=== PATIENT | female | born 1940 | race Caucasian/White ===

== ENCOUNTER 2024-09-27 12:33 | Observation (INO) ==
[2024-09-27 13:20] LABS: Basophils # (auto) 0.02 K/uL (0.00-0.20); Basophils % (auto) 0.3 %; Eosinophils # (auto) 0.11 K/uL (0.00-0.50); Eosinophils % (auto) 1.5 %; Hematocrit (blood only) 46.6 % (37.0-47.0); Hemoglobin 16.6 g/dl (12.0-16.0); Immature Granulocytes # (auto) 0.01 K/uL (0.01-0.20); Immature Granulocytes % (auto) 0.1 %; Lymphocytes # (auto) 2.29 K/uL (1.20-3.40); Lymphocytes % (auto) 31.5 %; Mean Corpuscular Hemoglobin 31.9 pg (25.0-34.0); Mean Corpuscular Hgb Conc 35.6 g/dL (32.0-36.0); Mean Corpuscular Volume 89.6 fL (80.0-100.0); Mean Platelet Volume 9.9 fL (9.4-12.4); Monocytes # (auto) 0.47 K/uL (0.11-0.59); Monocytes % (auto) 6.5 %; Neutrophils # (auto) 4.38 K/uL (1.40-6.50); Neutrophils % (auto) 60.1 %; Platelet Count 249 K/uL (130-400); RDW Coefficient of Variation 13.7 % (11.5-14.5); RDW Standard Deviation 44.7 fL (36.4-46.3); White Blood Count 7.28 K/ul (4.8-10.8)
--- NOTE | 2024-09-27 13:44 | XRay Report ---
XR chest 1V not portable CLINICAL HISTORY: Chest pain, nonspecific COMPARISON STUDY: Chest radiograph January 13, 2018. FINDINGS: Lung volumes are normal. Several small calcified pulmonary nodules are unchanged and benign . There is no pneumothorax or pleural effusion. Cardiac size is normal. Mediastinal contours are norm al. There is no evidence for pulmonary edema. IMPRESSION: No acute cardiopulmonary findings. ACT 112: Negative or not required by law. Electronically signed by: Chaitanya Earl M.D. 09/27/2024 1:42 PM
--- NOTE | 2024-09-27 15:12 | Electrocardiogram Report ---
Test Reason : Blood Pressure : */* mmHG Vent. Rate : 78 BPM Atrial Rate : 78 BPM P-R Int : 126 ms QRS Dur : 112 ms QT Int : 452 ms P-R-T Axes : 8 -30 -13 degrees QTcB Int : 515 ms Poor data quality, interpretation may be adversely affected Normal sinus rhythm Left axis deviation Incomplete left bundle block Minimal voltage criteria for LVH, may be normal variant Nonspecific ST and T wave abnormality Abnormal ECG When compared with ECG of 13-Jan-2018 15:04, Incomplete left bundle block has replaced Non-specific intra-ventricular conduction block Confirmed by Jeremías Connelly ([id number]) on 09/27/2024 3:11:54 PM Referred By: Confirmed By: Jeremías Connelly
--- NOTE | 2024-09-27 15:57 | Emergency Department Note ---
Impression & Plan Chest pain, Anxiety, Acute dehydration ED Provider Note NAME: HIMA GU AGE: 84 SEX: F : 1940 ARRIVES VIA: Walk-In INFORMANT: Patient, friend ED PROVIDER(S): Cedrick Sapp MD CHIEF COMPLAINT: Chest pain MEDICAL DECISION MAKING: Patient presents due to concern for intermittent chest pains. IV was established and blood work is obtained. I did review an outpatient cardiology note which showed the patient does not have any stress test imaging since August 2021. Patient's blood work today shows a normal white count with mildly elevated hemoglobin at 16.6 and a normal platelet count. The patient did receive IV Ativan 0.25 mg. The patient's kidney function unremarkable but prerenal azotemia likely present. Initial troponin is negative. Patient does feel improved and the patient no longer has any chest pains. Chest x-ray is unremarkable. I did speak with the on-call hospital service Indra Archibald PA-C and Dr. Daniels patient was admitted to medicine service. Discussion w/ other healthcare providers: ARCENIO Archibald PA-C and Dr. Daniels Prior /Outside records reviewed: I reviewed part of a primary care visit from Erwin Lei. Patient had history of CAD hypertension GERD MUELLER gastric bypass hyperlipidemia. Differential diagnosis: Cardiac ischemia, aortic dissection, pulmonary embolism, pneumothorax, pneumonia, pericarditis, myocarditis, GERD, cholecystitis, pancreatitis, musculoskeletal, as well as other pathologies were considered. Diagnostics, as interpreted by me: ECG: Normal sinus rhythm, rate of 78, prolonged QTc, normal axis significant motion artifact noted with likely T wave inversion inferiorly. Q wave anteriorly. No obvious STEMI. No priors for comparison. Repeat EKG interpreted myself Normal sinus rhythm, rate of 78, prolonged QTc, normal axis no ST elevations borderline left bundle branch block. Cardiac monitoring: An order was placed for continuous cardiac monitoring. The monitor shows a rate of 79 with sinus rhythm. Patient was placed on pulse oximetry Medical decision rules: Heart score Imaging studies: I informally interpreted the patient's chest x-ray does not show obvious pneumonia or pneumothorax with formal report to follow. HPI: Patient presents due to concern for chest pains. Patient reportedly has a chest pains over the last several weeks. This morning of the patient was on a 2 mile walk and when she came toward the end of her walk she did develop more severe centralized chest pain. The patient states that she did break out in a sweat. No nausea or vomiting. Patient reportedly visited friends who brought her here she was struggling to breathe and did seem uncomfortable. The patient states that her chest pain has been intermittent in nature sometimes with days in between chest pain episodes although difficult to determine any exacerbating or remitting factors. She does report that her chest pain feels improved where it is virtually resolved at this time. The patient denies any falls or trauma. No cough or fever. Patient denies any leg swelling or calf pain. She does have a prior history of heart disease and does follow with [facility] cardiology. PAST MEDICAL HISTORY: See Below PAST SURGICAL HISTORY: See Below SOCIAL HISTORY: See Below HOME MEDICATIONS: See Below ALLERGIES: See Below VITALS: See Below PHYSICAL EXAMINATION: GENERAL: NAD, non-toxic. Anxious in appearance. EYE EXAM: Normal conjunctiva. PERRL, no anisocoria and EOM's grossly intact w/o pain. OROPHARYNX: Moist mucus membranes, false teeth in place. NECK: Trachea midline, no stridor. Supple, no nuchal rigidity, no adenopathy, non-tender. No signs of meningismus. FROM of the neck with good chin to chest and neck extension. LUNGS: Clear to auscultation. Normal chest wall mechanics. HEART: NSR, no MRG. ABDOMEN: Abdomen soft, non-tender, no masses, no rebound or guarding. BACK: No CVA TTP. SKIN: No rashes and no bruising. UPPER EXTREMITIES: Upper extremities are grossly normal. LOWER EXTREMITIES: Grossly normal, no edema. Negative Homans' sign bilaterally. NEURO EXAM: A&O x3, cranial nerves II-XII grossly intact, normal speech, moves all 4 extremities. Past Med/Surg History Problem List (Updated 09/27/24 @ 19:17 by Cedrick Sapp MD) Acute dehydration (Acute) Anxiety (Acute) Chest pain (Acute) PARKINSON (dyspnea on exertion) Left bundle branch block follows with Dr. Emiliano Lucas Chest pain Myalgia Seasonal allergies Lightheadedness Atypical nevi History of compression fracture of vertebral column (05/05/22) Compression fracture of T3 and T4 vertebra Encounter for pre-operative examination CAD (coronary artery disease) (Chronic) Minimal luminal coronary atherosclerosis per 2007 cath per cardio records HTN (hypertension) (Chronic) GERD (gastroesophageal reflux disease) (Chronic) HLD (hyperlipidemia) (Chronic) MUELLER (nonalcoholic steatohepatitis) (Chronic) Mood disorder (Chronic) Status post total left knee replacement (Acute) Status post fall Vitamin B12 deficiency Restless legs Anemia S/P abdominal surgery, follow-up exam Frequent urination Elevated liver function tests Dysuria Stress incontinence Urge incontinence Recurrent UTI Medical History Anemia H&H WNL on preop labs 03/27/23 Arthritis Bladder leak GERD (gastroesophageal reflux disease) Anxiety Restless leg syndrome Hyperlipidemia Surgical History History of hysterectomy History of total knee replacement left History of esophagogastroduodenoscopy (EGD) History of colonoscopy History of cholecystectomy History of appendectomy H/O abdominal surgery 2021>hernia repair and bowel repair @ [facility] by Dr. Peters H/O gastric bypass 2006 at [facility] History of tooth extraction History of cataract surgery right/left History of cardiac cath 2006>[facility] History of appendectomy Family History Mother Diabetes Brother Coronary heart disease Sister Breast cancer Other No family history of adverse response to anesthesia Social History Smoking Status: Never smoker Age Started Using Tobacco: 32; Age Quit Using Tobacco: 34; Second Hand Exposure: No; Do You Dip or Chew Tobacco: No; Hx Alcohol Use: No Hx Substance Use: No Preferred Language: Pashto Leg Assembler Required: No Beliefs That Will Affect Care: None marital status: / Current Living Situation: Alone current occupational status: retired current occupation: retired- [employer] How many Children do You have: 4 Feels Safe at Home: Yes Childhood Exposure to Second-Hand Smoke: No caffeine: Yes (coffee) Dental Care, Regularly: No Physical Activity Frequency: Daily Seatbelt Use: always Sunscreen Use: Yes Assistive Devices: Denture - Upper and Denture - Lower Allergies Allergies Allergy/AdvReac Type Severity Reaction Status Date / Time No Known Drug Allergies Allergy Verified 06/22/24 09:12 seasonal allergies Allergy Mild Uncoded 06/22/24 09:12 Home Meds Home Medications Medication Instructions Recorded Confirmed docusate sodium 50 mg capsule 50 mg PO BID PRN Constipation 04/10/22 09/27/24 acetaminophen 650 mg 1,300 mg PO Q8H PRN pain 05/24/22 09/27/24 tablet,extended release multivitamin 1 tab PO BID 05/30/22 09/27/24 sennosides 8.6 mg tablet (Natural 8.6 mg PO QAM 05/30/22 09/27/24 Senna Laxative) aspirin 81 mg tablet,delayed 81 mg PO QPM 03/27/23 09/27/24 release (Adult Low Dose Aspirin) magnesium oxide 500 mg capsule 500 mg PO BID 03/27/23 09/27/24 rosuvastatin 5 mg tablet 5 mg PO HS 03/27/23 09/27/24 cyanocobalamin (vitamin B-12) 1,000 mcg IM .Q monthly 04/29/23 09/27/24 1,000 mcg/mL injection solution vitamins A,C,M-sgqu-jleuho 4,296 1 cap PO BID 11/17/23 09/27/24 mcg-226 mg-90 mg capsule (PreserVision AREDS) fluticasone propionate 50 2 spray intranasal DAILY PRN 09/27/24 09/27/24 mcg/actuation nasal ALLERGIES spray,suspension (Flonase Allergy Relief) metoprolol succinate 25 mg 12.5 mg PO DAILY 09/27/24 09/27/24 tablet,extended release 24 hr Previous Rx's Medication Instructions Recorded omeprazole 20 mg capsule,delayed 20 mg PO QAM #90 caps 01/20/24 release lisinopril 5 mg tablet 5 mg PO DAILY #90 tabs 02/16/24 trazodone 100 mg tablet 200 mg (2 x 100 mg) PO HS #180 tabs 07/02/24 cetirizine 10 mg tablet (Zyrtec) 10 mg PO DAILY PRN allergy 07/19/24 symptoms #30 tabs ropinirole 0.25 mg tablet 0.5 mg (2 x 0.25 mg) PO HS #60 tabs 07/19/24 citalopram 20 mg tablet (Celexa) 20 mg PO DAILY #90 tabs 09/16/24 misoprostol 200 mcg tablet 200 mcg PO QID #120 tabs 09/16/24 tizanidine 4 mg tablet 4 mg PO Q6H PRN muscle spasticity 09/16/24 #360 tabs Results & Data (ED) Vital Signs Vital Signs - 24 hr 09/27/24 12:36 09/27/24 15:30 09/27/24 15:31 Temperature 36.8 C Temperature Source Skin Pulse Rate 83 Pulse Rate [Apical] 83 Pulse Strength [Apical] Normal Respiratory Rate 22 24 Respiratory Effort / Characteristics Non-Labored Respiratory Depth Normal Normal Blood Pressure 166/93 H Blood Pressure [Right Arm] 156/84 H Blood Pressure Mean 117 Blood Pressure Mean [Right Arm] 108 Pulse Oximetry 93 99 Oxygen Delivery Method Room Air Sepsis Recent Fever Within 48 Hours No Sepsis New/Unexplained Change in Mental Status No Sepsis Action Taken by Nursing No Action Required 09/27/24 16:22 Temperature Temperature Source Pulse Rate 78 Pulse Rate [Apical] Pulse Strength [Apical] Respiratory Rate Respiratory Effort / Characteristics Respiratory Depth Blood Pressure Blood Pressure [Right Arm] Blood Pressure Mean Blood Pressure Mean [Right Arm] Pulse Oximetry Oxygen Delivery Method Sepsis Recent Fever Within 48 Hours Sepsis New/Unexplained Change in Mental Status Sepsis Action Taken by Alf Medications Current Medication List: was personally reviewed by me Laboratory Data Attestation: I reviewed the patient's lab results. 09/27/24 12:43 09/27/24 15:37 Lab Results 09/27/24 09/27/24 Range/Units 12:43 15:37 WBC 7.28 (4.8-10.8) K/ul RBC 5.20 (4.20-5.40) M/uL Hgb 16.6 H (12.0-16.0) g/dl Hct 46.6 (37.0-47.0) % MCV 89.6 (80.0-100.0) fL MCH 31.9 (25.0-34.0) pg MCHC 35.6 (32.0-36.0) g/dL RDW Std Deviation 44.7 (36.4-46.3) fL RDW Coeff of Daniel 13.7 (11.5-14.5) % Plt Count 249 (130-400) K/uL MPV 9.9 (9.4-12.4) fL Immature Gran % (Auto) 0.1 % Neut % (Auto) 60.1 % Lymph % (Auto) 31.5 % [place] % (Auto) 6.5 % Eos % (Auto) 1.5 % Baso % (Auto) 0.3 % Neut # (Auto) 4.38 (1.40-6.50) K/uL Lymph # (Auto) 2.29 (1.20-3.40) K/uL [place] # (Auto) 0.47 (0.11-0.59) K/uL Eos # (Auto) 0.11 (0.00-0.50) K/uL Baso # (Auto) 0.02 (0.00-0.20) K/uL Immature Gran # (Auto) 0.01 (0.01-0.20) K/uL PT Cancelled 10.4 INR Cancelled 1.0 APTT Cancelled 22 PTT Ratio Cancelled 0.8 Sodium Cancelled 140 Potassium Cancelled 3.5 Chloride Cancelled 103 Carbon Dioxide Cancelled 25 Anion Gap Cancelled 12 H BUN Cancelled 31 H Creatinine Cancelled 0.94 Est Cr Clr Drug Dosing Cancelled 39.2 eGFR Cancelled 60.21 BUN/Creatinine Ratio Cancelled 33.0 H Glucose Cancelled 93 Calcium Cancelled 10.0 Total Bilirubin Cancelled 0.8 AST Cancelled 36 ALT Cancelled 31 Alkaline Phosphatase Cancelled 78 Troponin I High Sens Cancelled 4.1 Total Protein Cancelled 7.6 Albumin Cancelled 4.6 Globulin Cancelled 3.0 Albumin/Globulin Ratio Cancelled 1.5 Administered Medications Discontinued Medications Aspirin (Aspirin Chew 324 Mg) 324 mg PO NOW STA Stop: 09/27/24 15:53 Last Admin: 09/27/24 16:02 Dose: 324 mg Documented By: MAREN Lorazepam (Lorazepam 2 Mg/1 Ml Vial) 0.25 mg IV NOW STA Stop: 09/27/24 15:53 Last Admin: 09/27/24 16:03 Dose: 0.25 mg Documented By: MAREN Imaging Data Radiologist's Impression: Chest X-Ray 09/27/24 12:39 XR chest 1V not portable CLINICAL HISTORY: Chest pain, nonspecific COMPARISON STUDY: Chest radiograph January 13, 2018. FINDINGS: Lung volumes are normal. Several small calcified pulmonary nodules are unchanged and benign. There is no pneumothorax or pleural effusion. Cardiac size is normal. Mediastinal contours are normal. There is no evidence for pulmonary edema. IMPRESSION: No acute cardiopulmonary findings. ACT 112: Negative or not required by law. Electronically signed by: Chaitanya Earl M.D. 09/27/2024 1:42 PM Discharge Plan Visit Data Chief Complaint: Chest Pain Stated Complaint: CHEST PAIN, SOB ED Provider: Cedrick Sapp Discharge Problem: Chest pain, Anxiety, Acute dehydration Patient Disposition: Admitted As Inpatient Discharge Instructions Interventions: ED Discharge Assessment Last Done: 09/27/24 18:18 Discharge Problem: Chest pain Qualifiers: Chest pain type: unspecified Qualified Code(s): R07.9 - Chest pain, unspecified
[2024-09-27] MEDS: ASPIRIN CHEW 324 MG PO STA (16:02)
[2024-09-27] MEDS: LORazepam 2 MG/1 ML VIAL IV STA (16:03)
[2024-09-27 16:06] LABS: Albumin Globulin Ratio 1.5 (0.9-2); Albumin Level 4.6 gm/dl (3.4-5.0); Bilirubin,Total 0.8 mg/dl (0.2-1.0); Creatinine Clr Calc Pharmacy 39.2 ml/min; Potassium 3.5 mmol/L (3.5-5.1); Total Protein 7.6 gm/dl (6.0-8.3)
[2024-09-27 16:13] LABS: Troponin I High Sensitivity 4.1 pg/ml (0-14)
[2024-09-27 16:25] LABS: Partial Thromboplastin Ratio 0.8; Partial Thromboplastin Time 22 Seconds (21-31); Prothrombin Time 10.4 Seconds (9.0-12.0)
--- NOTE | 2024-09-27 16:42 | History & Physical Report ---
Date of Service September 27, 2024 Assessment & Plan (1) Chest pain: Plan: Patient presented on 09/27 for worsening substernal chest pain x 2 weeks She describes it as a "elephant" sitting on her chest that can occur both at rest and with exertion DDx on arrival includes unstable angina, GERD, and anxiety (among other etiologies) Patient is chest pain-free at time of admission Troponin 4.1 on arrival, repeat pending Magnesium ordered, pending Follows with [facility] cardiology (Dr. Lucas) Last normal nuclear stress was 08/2021 Cardiology evaluation appreciated for potential stress echo Continuous telemetry monitoring (2) PARKINSON (dyspnea on exertion): Plan: No leukocytosis; afebrile CXR without acute findings Patient denies URI symptoms; will defer viral panel on admission Echocardiogram (as above) (3) CAD (coronary artery disease): Plan: Aspirin 324 mg p.o. x 1 in the ED Continue aspirin, statin, metoprolol (4) HTN (hypertension): (5) Left bundle branch block: Plan Disposition: Obs - [facility] tele[facility] Full code Heart healthy diet VTE PPx: Lovenox 40 mg SQ q24h History of Present Illness Chief Complaint: Chest pain Primary Care Provider: Erwin Art DO Tiffany is an 84-year-old female with PMH of MUELLER, mood disorder, stress/urge incontinence, gastric bypass, HTN, HLD, and CAD. She presented on 09/27 for substernal chest pain x 2 weeks. She reports it feels like a "elephant" sitting on her chest, and can last intermittently for hours at a time. It can occur both at rest and with exertion, and she reports that she occasionally breaks out into sweats. Today, it occurred after she had walked 2 miles outside. The pain can last for hours at a time. She is unsure if there is any alleviating symptoms, but reports that it does sometimes alleviate with rest or when she goes to bed. This has become a daily occurrence for her. She describes it as a dull, achy pain that is 10/10 at worst. One episode of radiation up to the jaw. No radiation to her shoulders or down the arms. No radiation between her shoulder blades. She has been taking Tylenol at home for the pain, which she does report helps. No recent falls, injuries to the chest wall, or muscle strains to her knowledge. She is chest pain-free after receiving medicine in the ED. She does not believe she has had any rashes or tick bites on her abdomen or torso. Patient took her regular morning medicine today; no recent change in medicines. She manages her own medicine at home. Additional symptoms include new onset PARKINSON. She follows with Dr. Lucas cardiology outpatient. She does not use supplemental oxygen at baseline or a CPAP at night. Patient denies smoking, tobacco use, recent alcohol use. Patient is mildly hypertensive at 156/84 time of admission; vitals otherwise stable. ED course: Aspirin 324 mg p.o. Lorazepam 0.25 mg IV ROS: Patient endorses intermittent chest pain (like an "elephant" sitting on her chest), GOMEZ, intermittent lightheadedness, pleuritic CP, and new onset PARKINSON. Patient denies fever, chills, night-sweats, pain between the shoulder blades, SOB at rest, chest palpitations, cough, hemoptysis, abdominal pain, N/V/D, changes in urinary/bowel habits, blood in the urine/stool, or numbness/tingling/pain in the arms. Allergies Allergy/AdvReac Type Severity Reaction Status Date / Time No Known Drug Allergies Allergy . Verified 09/28/24 10:28 Home Medications Medication Instructions Recorded Confirmed Type docusate sodium 50 mg capsule 50 mg PO BID PRN Constipation 04/10/22 09/27/24 History acetaminophen 650 mg 1,300 mg PO Q8H PRN pain 05/24/22 09/27/24 History tablet,extended release multivitamin 1 tab PO BID 05/30/22 09/27/24 History sennosides 8.6 mg tablet (Natural 8.6 mg PO QAM 05/30/22 09/27/24 History Senna Laxative) aspirin 81 mg tablet,delayed 81 mg PO QPM 03/27/23 09/27/24 History release (Adult Low Dose Aspirin) magnesium oxide 500 mg capsule 500 mg PO BID 03/27/23 09/27/24 History rosuvastatin 5 mg tablet 5 mg PO HS 03/27/23 09/27/24 History cyanocobalamin (vitamin B-12) 1,000 mcg IM .Q monthly 04/29/23 09/27/24 History 1,000 mcg/mL injection solution vitamins A,C,X-rzdp-chfont 4,296 1 cap PO BID 11/17/23 09/27/24 History mcg-226 mg-90 mg capsule (PreserVision AREDS) omeprazole 20 mg capsule,delayed 20 mg PO QAM #90 caps 01/20/24 09/27/24 Rx release lisinopril 5 mg tablet 5 mg PO DAILY #90 tabs 02/16/24 09/27/24 Rx trazodone 100 mg tablet 200 mg (2 x 100 mg) PO HS #180 tabs 07/02/24 09/27/24 Rx cetirizine 10 mg tablet (Zyrtec) 10 mg PO DAILY PRN allergy 07/19/24 09/27/24 Rx symptoms #30 tabs ropinirole 0.25 mg tablet 0.5 mg (2 x 0.25 mg) PO HS #60 tabs 07/19/24 09/27/24 Rx citalopram 20 mg tablet (Celexa) 20 mg PO DAILY #90 tabs 09/16/24 09/27/24 Rx misoprostol 200 mcg tablet 200 mcg PO QID #120 tabs 09/16/24 09/27/24 Rx tizanidine 4 mg tablet 4 mg PO Q6H PRN muscle spasticity 09/16/24 09/27/24 Rx #360 tabs fluticasone propionate 50 2 spray intranasal DAILY PRN 09/27/24 09/27/24 History mcg/actuation nasal ALLERGIES spray,suspension (Flonase Allergy Relief) metoprolol succinate 25 mg 25 mg PO QAM #30 tabs 09/28/24 Rx tablet,extended release 24 hr Past Med/Surg History Problem List SVT (supraventricular tachycardia) Acute dehydration (Acute) Anxiety (Acute) Chest pain (Acute) PARKINSON (dyspnea on exertion) Left bundle branch block follows with Dr. Emiliano Lucas Chest pain Myalgia Seasonal allergies Lightheadedness Atypical nevi History of compression fracture of vertebral column (05/05/22) Compression fracture of T3 and T4 vertebra Encounter for pre-operative examination CAD (coronary artery disease) (Chronic) Minimal luminal coronary atherosclerosis per 2007 cath per cardio records HTN (hypertension) (Chronic) GERD (gastroesophageal reflux disease) (Chronic) HLD (hyperlipidemia) (Chronic) MUELLER (nonalcoholic steatohepatitis) (Chronic) Mood disorder (Chronic) Status post total left knee replacement (Acute) Status post fall Vitamin B12 deficiency Restless legs Anemia S/P abdominal surgery, follow-up exam Frequent urination Elevated liver function tests Dysuria Stress incontinence Urge incontinence Recurrent UTI Medical History Anemia H&H WNL on preop labs 03/27/23 Arthritis Bladder leak GERD (gastroesophageal reflux disease) Anxiety Restless leg syndrome Hyperlipidemia Surgical History History of hysterectomy History of total knee replacement left History of esophagogastroduodenoscopy (EGD) History of colonoscopy History of cholecystectomy History of appendectomy H/O abdominal surgery 2021>hernia repair and bowel repair @ [facility] by Dr. 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 Beliefs That Will Affect Care: None marital status: / Current Living Situation: Alone current occupational status: retired current occupation: retired- [employer] How many Children do You have: 4 Feels Safe at Home: Yes Childhood Exposure to Second-Hand Smoke: No caffeine: Yes (coffee) Dental Care, Regularly: No Physical Activity Frequency: Daily Seatbelt Use: always Sunscreen Use: Yes Assistive Devices: None Review of Systems Review of Systems: See HPI above Physical Exam Physical Exam: General: no acute distress; pleasant affect; non-toxic appearing; frail appearing; cooperative; SpO2 99% on RA HEENT: normocephalic, atraumatic; no scleral icterus; PERRLA; vision and hearing intact Neck: supple; no lymphadenopathy; trachea midline Skin: warm, dry without signs of tenting; no cyanosis; no rashes, bruising, lesions, or erythema noted CV: chest wall is mildly TTP substernally; no rashes or bruising noted on the chest wall, abdomen, flanks; RRR; S1/S2 normal; no murmurs/rubs/gallops; pulses intact and symmetric at radial, DP, and PT Lungs: no acute respiratory distress; symmetrical chest wall expansion; clear breath sounds across all lung ramos w/o adventitious sounds; no wheezing ABD: Soft, NTP; BS present; no rebound/guarding; no distention MSK: no tics or fasciculations; no edema noted in the LEs b/l, nonerythematous; 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 Neuro: A&Ox3; normal mood and affect; fluent speech; no focal deficits; sensation is intact and symmetric in lower extremities bilaterally Results & Data Results & Data Vital Signs (Past 12 Hours) Vital Signs Temp Pulse Pulse Resp BP BP Pulse Ox 09/27/24 16:22 78 09/27/24 15:31 99 09/27/24 15:30 83 24 156/84 H 09/27/24 12:36 36.8 C 83 22 166/93 H 93 O2 Del Method 09/27/24 16:22 09/27/24 15:31 Room Air 09/27/24 15:30 09/27/24 12:36 Laboratory Results Abnormal lab results 09/27/24 09/27/24 Range/Units 12:43 15:37 Hgb 16.6 H (12.0-16.0) g/dl Anion Gap 12 H (3-11) BUN 31 H (6-23) mg/dl BUN/Creatinine Ratio 33.0 H (10-20) Diagnostic Findings Chest X-Ray 09/27/24 12:39 XR chest 1V not portable CLINICAL HISTORY: Chest pain, nonspecific COMPARISON STUDY: Chest radiograph January 13, 2018. FINDINGS: Lung volumes are normal. Several small calcified pulmonary nodules are unchanged and benign. There is no pneumothorax or pleural effusion. Cardiac size is normal. Mediastinal contours are normal. There is no evidence for pulmonary edema. IMPRESSION: No acute cardiopulmonary findings. ACT 112: Negative or not required by law. Electronically signed by: Chaitanya Earl M.D. 09/27/2024 1:42 PM ECG Additional Comments: ECG revealed NSR at 81 bpm; QTc 534 (caution use of QT prolonging agents); LBBB H/o incomplete LBBB on prior EKGs Code Status & VTE Plan Code Status Full code VTE Prophylaxis Plan VTE Prophylaxis will be ordered: Yes Supervising Physician Co-Signing Physician Notes Attending addendum: I have physically seen this patient, have supervised the CLARISSE's medical activities, and agree with the H&P unless as otherwise noted. Assessment and Plan: #Chest pain/CAD/hypertension The patient will be admitted to telemetry for serial cardiac enzymes, serial EKG's, cardiac rhythm monitoring and a 2-D echocardiogram with Dopplers. Initial troponin 4.1, with follow-up pending Follows with [facility] cardiology Dr. Emiliano Lucas EKG with normal sinus rhythm at 78, left axis deviation and incomplete left bundle branch block which is new Consulting Dr. Henry in his place covering for Dr. Lucas Given aspirin 324 mg in the ED, typically is on aspirin 81 mg daily Continue metoprolol succinate 25 mg every morning #Hyperlipidemia continue rosuvastatin Check a fasting lipid panel #GERD- Continue misoprostol, omeprazole changed to pantoprazole Remaining orders and notations as noted PG Care Time/CCT Total # of Minutes Spent Total Time Spent with Patient: Total time spent is greater than 50% in coordination of care (as documented) at patient's floor/unit and/or counseling patient: C[place] [address] INT INP/OBS CARE 2/55MIN Patient Type Established Medical Decision Making Moderate Complexity Diagnoses Chest pain R07.9 PARKINSON (dyspnea on exertion) R06.09 CAD (coronary artery disease) I25.10 HTN (hypertension) I10 Left bundle branch block I44.7
--- OUTSIDE RECORDS SUMMARY | 2024-09-27 17:45 | External Medical Summary | Summary of Care ---
Author Name Unknown Organization [facility] Address [address] [place] [address] Phone [phone] Care Team Providers Care Astronomy Teacher Name Role Phone Erwin Art DO Primary Care Provider + [phone] Reason for Visit * Reason Comments eRx-Medication Refill Encounter Details Date Type Department Care Team (Late st Contact Info) Description 09/16/2024 Refill Cardiology, [facility] [address] [place] [address] Cristiano Garcia PA-C [address] [place] [address] Allergies Active Allergy Reactions Criticality Noted Date Comments Pollen Low 07/15/2024 Rhinitis documented as of this encounter (statuses as of 09/17/2024) Medications Magnesium 500 MG Capsule Take 1 Tablet by mouth in the morning. Active traZODone HCl 100 MG Oral Tablet (DESYREL)Indica tions:Hospital discharge follow-up,Recur rent major depression-delfina re ([facility]) TAKE 2 TABLETS EACH NIGHT BEDTIME 180 Tab 3 020 Active Cyanocobalamin 1000 MCG/ML Injection Solution (Cyanocobalamin ) Inject 1,000 mcg into a large muscle every 30 days. Active Omeprazole 20 MG Oral Capsule Delayed Release (PriLOSEC)Indic ations:GERD Take by mouth 1 Capsule in the morning. For 90 days after surgery. Do not start before May 23, 2022. 90 Capsule Active Senna 8.6 MG Oral Capsule Take by mouth 1 Capsule at bedtime . Active Acetaminophen 500 MG Oral Tablet (Tylenol) 2 caps every 8 hours for 3 days, then 1 cap every 4 hours as needed for pain. Do not exceed 3000mg acetaminophen (Tylenol) every 24 hours. 30 Tablet Active rOPINIRole HCl 0.25 MG Oral Tablet (Requip) at bedtime. Active tiZANidine HCl 4 MG Oral Tablet (Zanaflex) TAKE 1 TABLET BY MOUTH EVERY 6 HOURS NEEDED FOR MUSCLE SPASTICITY Active Calcium Soft Chews 500-500-40 MG-UNT-MCG Oral Tablet Chewable (Calcium-Vitami n D-Vitamin K) Take 1 Tablet by mouth in the morning and 1 Tablet at noon and 1 Tablet in the evening. Take with meals. lorraine advantage . Active Vitamin D-3 25 MCG (1000 UT) Oral Capsule Take 1 Capsule by mouth in the morning. Active Multivitamin Adults Oral Tablet Take 1 Tablet by mouth in the morning and 1 Tablet before bedtime. Active Zinc Sulfate 220 (50 Zn) MG Oral Tablet Take by mouth 1 Tablet in the morning. 30 Tablet 5 Active Vitamin C 500 MG Oral Capsule Take by mouth. Active Co Q 10 100 MG Oral Capsule Take by mouth. Ac tive Biotin 1 MG Oral Capsule Take 1 Capsule by mouth in the morning. Active Cranberry 125 MG Oral Tablet Take by mouth. Active NATURAL SUPPLEMENT Take by mouth as needed. Beet root Active PreserVision AREDS 2 Oral Capsule Take 1 Capsule by mouth in the morning. Active miSOPROStol 200 MCG Oral Tablet (Cytotec) Take 1 Tablet by mouth in the morning and 1 Tablet at noon and 1 Tablet in the evening and 1 Tablet before bedtime. Active Lisinopril 5 MG Oral Tablet (Prinivil) Take 1 Tablet by mouth in the morning. Active Citalopram Hydrobromide 20 MG Oral Tablet (CeleXA) Take 1 Tablet by mouth in the morning. Active Metoprolol Succinate ER 25 MG Oral Tablet Extended Release 24 Hour (toPROL XL) Take 1/2 (one-half) tablet by mouth once daily 45 Tablet 024 Active Metoprolol Succinate ER 25 MG Oral Tablet Extended Release 24 Hour (toPROL XL) Take 0.5 Tablets by mouth daily. 45 Tablet 3 024 2023 Discontinued documented as of this encounter (statuses as of 09/17/2024) Active Problems Problem Noted Date Diagnosed Date Protein-calorie malnutrition 07/18/2022 Internal hernia 05/20/2022 Acute gastrojejunal anastomotic ulcer 05/20/2022 Postoperative abdominal pain 05/20/2022 Facial hematoma 05/06/2022 Traumatic ecchymosis of left hand 05/06/2022 Traumatic ecchymosis of right hand 05/06/2022 Fall 05/05/2022 Multiple fractures of ribs of right side 022 Near syncope 11/21/2021 LBBB (left bundle branch block) 11/21/2021 Moderate single current epis ode of major depressive disorder 12/12/2017 Personal history of alcoholism 12/12/2017 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 10/28/2007: LDL-D 98, alt 19(off zocor since [id number] bypass) : ua neg, Tc 180, ldl-d105, alt19, inc to 40 mg(will be off After Gastric bypass) 04/10/2007: LH 200/83/53/128-LDL-D,, nml LFT, Mag 2.3,( nml BMP,ua, CBC, coags, neg troponin x3.) started zocor 20 mg by On . H/O gastric bypass 02/16/2008 HTN, goal below 140/90 06/05/2007 Esophageal reflux 06/05/2007 MUELLER RESEARCH OTHER*[id number] 04/14/2007 Coronary artery disease due to lipid rich plaque 04/10/2007 Overview (10/29/2010): lexiscan.----02/05/10--neg, ef 74%/88% stress. Stress echo 01/24/10-- suboptimal --achieved 77% HR,tech limited had accelerated depnedant LBBB, no CP--rec lexiscan 08/18/07 cardiac cath: left main normal, left anterior descen, mild diffuse diease proximal to mild portion, circumflex normal, right coronary normal, normal left vent systolic function 04/10/2007: adm < adenosine stress test - mild isc mid antr wall? Breast attenuation, LV Ef rest 65%, stress 74%-- rec medical RX. GENERAL OSTEOARTHROSIS 08/05/2006 Overview (08/05/2006): Saw , FEM STRESS INCONTINENCE 08/05/2006 COMMON MIGRAINE WITH INTRACTABLE MIGRAINE, SO ST ATED 01/12/2002 Overview (10/28/2007): 10/28/2007: dose was dec after gastric bypass 20bid On verapamil 120 mg With no rec sx.( on many yrs) Hyperplastic colon polyp Overview (09/15/2012): 08/10-fair prep- One 3 mm polyp in the sigmoid colon -HPP Rpt 5 yrs --:- 03-23-07: csope - nml, rpt in 5 yrs. Colonoscopy 03-02: , tiny polyps, rec fu in 3 yrs.- 2006. documented as of this encounter (statuses as of 09/17/2024) Resolved Problems Problem Noted Date Diagnosed Date Resolved Date Vomiting 04/30/2022 05/02/2022 Dysphagia 04/30/2022 05/02/2022 Ethanolism 06/09/2017 07/31/2017 Chronic alcoholism in remission 12/02/2016 06/09/2017 Recurrent major depression-severe 11/04/2015 06/09/2017 Alcohol dependence, continuous 11/04/2015 12/02/2016 Abdominal pain, epigastric 11/07/2014 0 11/20/2015 Overview (11/07/2014): upper endoscopy Alcohol dependence in remission 08/13/2013 11/04/2015 Hydronephrosis, right 07/23/20132012 Ureterolithiasis 07/05/2013 07/31/2017 Overview (08/11/2013): 07/29/13--rpt CT-DrAnsong--resolved HN, no stone, [address] in left kidney. 07/02/13-sent to ER--micro hematuria>>3mm Rt distal ur with mod HN., LT UP vague density--rec US >dc on cipro,flomax,percocet,zofran Jejunal ulcer 07/02/2013 07/31/2017 Overview (04/24/2015): 01/11--healing Jejunal ulcer with clean base 4mm--ct ppi indef--dc carafate -dRP 11/13- -sx abd pain>st carafate--etoh abuse--EGD-Jejunal ulcer with clean base , rpt 2 mths 07/11--NVX-SzQhmxmpy_-0yt JU--ppi bid, and carafte x 4 wks, rpt EGD----08/30/13>healed, dc carafate,dec ppi 1/d S/P laparoscopic cholecystectomy 07/02/2013 06/09/2017 Unspecified closed fracture of ankle 09/23/2012 07/31/2017 Fracture, fibula 03/30/2012 09/15/2012 Obesity, Class I, BMI 30.0-3 4.9 (see actual BMI) 12/25/2009 07/03/2017 Overview (10/24/2014): 10/24/2014--BMI: 30.54 kg/m Uejr60--895/51/72/55, ld 57, alt Qsl00--jbv cbc, bmp x bun24, lft, iron, folic acid,Vd 58, on B12 q 3 mths since , LDL_D apr--res zocor(56 lb wt loss after Sg) 10/14/2007: ld-98, alt nml--BMI: 36.68 kg/m? 09/17/2007, laparoscopic Gertrudis-en-Y gastric bypass, EGD (esophagogastroduodenoscopy), liver biopsy by Dr. Rodrigues. 11/26/2006: nml cbc hb 15.8, FBS 91, 217/126/55/137, TSH 1.03, USA conc with Ca ox cry.- -nmlua January 02: NMl cbc, ec Hb 15,CMP, FBS 86, TSH 0.73, lipids nml, nml EGD March 2005. Routine medical exam 10/05/2009 015 Intestinal postoperative nonabsorption 10/13/2007 07/31/2017 ACTIVE CASE MANAGEMENT 10/01/200708/15 Overview (10/01/2007): Bryan Dover LPN, Wrecker Driver Nurse- [facility] [phone] Calculus of gallbladder with out mention of cholecystitis or obstruction 07/20/2007 10/21/2013 Overview (07/20/2007): sep07 and fatty liver. Fatty liver 07/20/2007 07/31/2017 Overview (10/11/2009): 10/11/2009--neg hepatitis panel. Mixed dyslipidemia 04/10/2007 9 Overview (09/05/2009): Per Lipid Taxonomy. -- 137/51/72/57 - nml cbc, bmp, fbs, lft, ferritin, pth, vit D, LD--75 - LDL-D 108.----zocor . 10/28/2007: LDL-D 98, alt 19(off zocor since [id number] bypass) : ua neg, Tc 180, ldl-d105, alt19, inc to 40 mg(will be off After Gastric bypass) 04/10/2007: LH 200/83/53/128-LDL-D,, nml LFT, Mag 2.3,( nml BMP,ua, CBC, coags, neg troponin x3.) started zocor 20 mg by On . Advanced care planning/counseling discussion 7 07/31/2017 Overview (10/24/2014): 10/21/2013 , 10/24/2014 -Booklet given. INFORMATION 12/30/2006 06/09/2017 Overview (10/05/2008): 10/28/2007: CPE, Immunizations are uptodate., 10/05/2008: preop cardiac clearance: Hb 15.8, nml coags, ua conc, nml bmp, fbs95, neg cxr ky cardiac cath preop., EKG_ new lbbb, abn stres Test in past New pt eval . Persistent insomnia 12/30/2006 07/31/20 17 Overview (10/21/2013): 10/12--Pt D/C Buspirone - increased anxieties+appetite--on trazodone 200mg(inc from 150 in 08/11) 10/28/2007: on ambien 10 mg 12/30/2006:On lorazepam 2mg qhs, will wean off, and try ambien.(+ stressors t ahome) ca oxalate crystalluria 12/30/200609/30 Osteopenia 08/25/2006 07/31/2017 Overview (10/28/2014): 10/13--Osteopenia---1.9 rpt 2 yrs 09/23/2012: low risk--rpt 2 yrs. 02/06--dexa --low risk--rpt 2 yrs.(fracture left ankle 06/10-----sp fall--dexa 09/13/12) Dexa nml nov >rec rpt in 4 yrs. Encounter for screening mamm ogram for breast cancer 08/05/2006 06/09/2017 Overview (03/05/2015): mammo--neg -02/06;;02/07;;02/08;;02/09;;03/13;; 02/05-scattered fibroglandular densities. 01/29/2009--RT unchg-Scattered lucent- sl inc centered and punctate calcifications, lt neg --rpt 1 yr( lost 100Lb since last ) 01/13/2007: scattered fibroglandular densities.--01/27/2008-same Mammo:03-04, 03-05,. 03-06 neg. Screening for malignant neoplasm of cervix 08/05/2006 06/09/2017 Overview (08/05/2006): SP shantelle+bso in 1982, no need PAPs. FAM HX-DIABETES MELLITUS 08/05/2006 Overview (12/30/2006): : FBS 91. Mom and daughter. FAMILY HX-BREAST MALIG 08/05/200612/12 Overview (08/05/2006): Sister.age 60+ Family history of other card iovascular diseases 08/05/2006 12/12/2017 Overview (12/21/2015): Stress echo nml 10-06-05 2 brothers. ICD-10 update of inactive term DIVERTICULOSIS OF COLON 08/05/200605/30 CONTRACTED PALMAR FASCIA 08/05/200610/2016 Actinic keratosis 12/14/2001 05/06/2014 Major depressive disorder, r ecurrent episode, mild 11/04/2015 Overview (10/24/2014): Moved [place] [address] 09/2012.>>>>>>>>>>>08/11--fu DrSheth >>10/13-lives at home, dtr lives next door. Psychiatrist bryan 2011---see notes 10/28/2007: had crying spells when off med after gastric bypass On celexa 40 mg x 2 yrs. OBESITY, UNSPECIFIED 010 Overview (12/25/2009): Per Obesity Taxonomy, [id number]--665/51/72/55, ld 57, alt Asa41--pht cbc, bmp x bun24, lft, iron, folic acid,Vd 58, on B12 q 3 mths since , LDL_D apr--res zocor(56 lb wt loss after Sg) 10/14/2007: ld-98, alt nml--BMI: 36.68 kg/m? 09/17/2007, laparoscopic Gertrudis-en-Y gastric bypass, EGD (esophagogastroduodenoscopy), liver biopsy by Dr. Rodrigues. 11/26/2006: nml cbc hb 15.8, FBS 91, 217/126/55/137, TSH 1.03, USA conc with Ca ox cry.- -nmlua January 02: NMl cbc, ec Hb 15,CMP, FBS 86, TSH 0.73, lipids nml, nml EGD March 2005. documented as of this encounter (statuses as of 09/17/2024) Immunizations Name Administration Dates Next Due COVID-19 mRNA, LNP-s, No Pre serve, 2-Dose Series (Scuttledog) 06/27/2021,12/23/2020,11/27/2020 H1N1 2009 Influenza, IM 10/24/2009 Pneumococcal Conjugate Vacc, 13 Valent (Prevnar) 11/23/2014 Pneumococcal Polysaccharide PPV23 (Pneumovax) 08/05/2006 Season Influenza, Quad, PF, Adjuvanted, 65+ Yrs, IM (FLUAD) 07/25/2020 Seasonal Influenza Vac., MDV , IM, 0.5 mL (Fluzone) 06/11/2014,06/12/2013,06/15/2012,07/30,07/16/2010,06/13/2009,07/20/2008 ,07/21/2007,08/12/2006 Seasonal Influenza, PF, 6 M & above, IM , (FluLaval or Fluzone) 2018 Seasonal Influenza, Quadriva lent Hd (Fluzone Hd) 06/18/2021 Seasonal Influenza, Quadriva lent, No Preserve, IM 06/09/2017,07/16/2016,07/03/2015 Seasonal Influenza, Trivalen t, Adjuvanted, 65+ YRS, PF, (Fluad) 2019 TD, Preservative Free 11/29/2016 TDAP, Age 7 and older, IM (Adacel) 08/05/2006 Varicella Zoster Vaccine (Adult) 04/04/2009 Zoster Vaccine Recombinant (Shingrix) 09/26/2020 ,07/25/2020 documented as of this encounter Social History Tobacco Use Types Packs/Day Years Used Date Smoking Tobacco: Former Cigarettes 1 2 0 09/29/1967 - 09/29/1969 Smokeless Tobacco: Never Comments:quit at age 31 afte r smoking for 2 years Alcohol Use Standard Drinks/Week Comments Not Currently 0 (1 standard drink = 0.6 oz pur e alcohol) quit 10 years ago PHQ-2 Answer Date Recorded PHQ-2 Score 0 08/02/2018 Utilities Answer Date Recorded Do you have trouble paying y our heating, water, or electric bill? (Adult - for ages 18 years and over) Not on file 03/16/2024 Is your family able to pay t he heat, water, or electric bill? (Household - for ages 0-17 years) Not on file 03/16/2024 Does your family have access to good internet? (Household - for ages 0-17 years) Not on file 03/16/2024 Social Connections Answer Date Recorded How often do you feel lonely or isolated from those around you? (Adult - for ages 18 years and over) Not on file 03/16/2024 Comments No Sex and Gender Information Value Date Recorded Sex Assigned at Not on file Legal Sex Female 5:50 AM EST Gender Identity Not on file Sexual Orientation Not on file documented as of this encounter Functional Status * Are you deaf or do you have serious difficulty hearing? Answer Date of Assessment Author No 05/26/2022 1:16 AM Jordyn Alegria RN * Are you blind or do you have serious difficulty seeing, even when wearing glasses? Answer Date of Assessment Author No 05/26/2022 1:16 AM Jordyn Alegria RN * Do you have serious difficulty walking or climbing stairs? (5 years old or older) Answer Date of Assessment Author No 05/26/2022 1:16 AM Jordyn Alegria RN * Do you have difficulty dressing or bathing? (5 years old or older) Answer Date of Assessment Author No 05/26/2022 1:16 AM Jordyn Alegria RN * Because of a physical, mental, or emotional condition, do you have difficulty doing errands alone such as visiting a doctors office or shopping? (15 years old or older) Answer Date of Assessment Author No 05/26/2022 1:16 AM Jordyn Alegria RN documented as of this encounter Mental Status * Because of a physical, mental, or emotional condition, do you have serious difficulty concentrating, remembering, or making decisions? (5 years old or older) Answer Entry Date Author No 05/26/2022 1:16 AM Jordyn Alegria RN documented in this encounter Miscellaneous Notes * Telephone Encounter - Adriana Sanchez RPh - 09/17/2024 3:55 PM ESTSigned Prescriptions: Disp Refills Metoprolol Succinate ER 25 MG Oral Tablet *45 Tab*0 Sig: Take 1/2 (one-half) tablet by mouth once dailyAuthorizing Provider: CRISTIANO GARCIA User: Jojo SANCHEZ * Telephone Encounter - Adriana Sanchez RPh - 09/17/2024 3:53 PM EST Cardio apt scheduled for 10/04/24 Adriana Patricio PharmD Clinical Pharmacist [facility] 09/17/2024, 3:54 PM documented in this encounter Plan of Treatment Upcoming Encounters Date Type Department Care Team (Late st Contact Info) Description 10/04/2024 10:30 AM EST Office Visit Cardiology, [facility] [address] [place] [address] Cristiano Garcia PA-C [address] [place] [address] Health Maintenance Due Date Last Done Comments Albumin/Creatinine Ratio 1959 DXA Scan 10/21/2017 10/21/2014, 08/30, 09/23/2012, Additional history exists Depression Monitoring 12/12/2018 12/12/2017 Colonoscopy 10/09/2020 10/09/2017, 09/29, 07/30/2012, Additional history exists COVID-19 Vaccine ( season) 2024 06/27/2021, 12/23/2020, 11/27/2020 Influenza Vaccine (FLU shot) (#1) 2024 06/18/2021, 07/25/2020, 2019, Additional history exists GFR 07/15/2025 07/15/2024, 03/2024, 07/18/2022, Additional history exists DTap/Tdap Vaccines (3 - Td or Tdap) 11/29/2026 11/29/2016, 08/05/2006 Pneumococcal Vaccine: 65+ Years Completed 11/23/2014, 08/05/2006 Zoster Vaccines Completed 09/26/2020, 06/30, 04/04/2009 HPV (Gardasil) Vaccine Aged Out No lo nger eligible based on patient's age to complete this topic Hepatitis B Vaccine Aged Out No longe r eligible based on patient's age to complete this topic MENINGOCOCCAL (MENACTRA/MENVEO) Aged Out No longer eligible based on patient's age to complete this topic documented as of this encounter Medical Devices Not on filedocumented as of this encounter Advance Directives * Full Code (Latest Code Status on File) Date Activated Date Inactivated Comments 05/26/2022 9:12 AM 05/29/2022 10:20 PM This order reflects the patients wishes and were consensually agreed upon. Question Answer Comments Discussion of Advance Directives occurred with: Patient * Full Code Date Activated Date Inactivated Comments 05/26/2022 1:47 AM 05/26/2022 9:12 AM Question Answer Comments Discussion of Advance Direct stevo occurred with: Not Discussed due to patient's condition * Full Code Date Activated Date Inactivated Comments 05/19/2022 7:49 AM 05/23/2022 6:06 PM This order r eflects the patients wishes and were consensually agreed upon. Question Answer Comments Discussion of Advance Directives occurred with: Not Discussed * Full Code Date Activated Date Inactivated Comments 05/19/2022 3:32 AM 05/19/2022 7:49 AM This order r eflects the patients wishes and were consensually agreed upon. Question Answer Comments Discussion of Advance Directives occurred with: Patient * Full Code Date Activated Date Inactivated Comments 05/05/2022 2:33 PM 05/06/2022 7:41 PM This order ref lects the patients wishes and were consensually agreed upon. Question Answer Comments Discussion of Advance Directives occurred with: Patient Care Teams Astronomy Teacher Relationship Specialty Start Date End Date Erwin Art DO [address] [place] [id number] PCP - General Family Medicine 08/10/21 documented as of this encounter
[2024-09-27] MEDS ORDERED: CETIRIZINE HCL 10 MG TABLET PO PRN (18:17)
[2024-09-27] MEDS ORDERED: FLUTICASONE PROPIONATE NA SPR 16 GM BTL PRN (18:17)
[2024-09-27] MEDS ORDERED: ACETAMINOPHEN 325 MG TAB PO PRN (18:17)
[2024-09-27 19:01] LABS: Magnesium 2.1 mg/dl (1.7-2.4)
[2024-09-27 19:08] LABS: Troponin I High Sensitivity 5.1 pg/ml (0-14)
[2024-09-27] MEDS: traZODone HCL 100 MG TAB PO SCH (22:15)
[2024-09-27] MEDS: rOPINIRole HCL 0.25 MG TABLET PO SCH (22:15)
[2024-09-27] MEDS: ENOXAPARIN INJ 40 MG/0.4 ML SYR SQ SCH (22:15)
[2024-09-27] MEDS: ROSUVASTATIN CALCIUM 5 MG TAB PO SCH (22:15)
[2024-09-27] MEDS: tiZANidine HCL 4 MG TABLET PO PRN (22:19)
[2024-09-27] MEDS: miSOPROStoL 200 MCG TAB PO SCH (22:21)
[2024-09-28] MEDS: CITALOPRAM 20 MG TAB PO SCH (07:35)
[2024-09-28] MEDS: lisinopril 5 MG TAB PO SCH (07:36)
[2024-09-28] MEDS: METOPROLOL SUCC 25MG EXT REL TAB PO SCH (07:36)
[2024-09-28] MEDS: PANTOprazole 40 MG TAB PO SCH (07:37)
--- NOTE | 2024-09-28 07:43 | Hospitalist Progress Note ---
Date of Service September 28, 2024 Assessment & Plan (1) Chest pain: Plan: Patient presented on 09/27 for worsening substernal chest pain x 2 weeks -She describes it as a "elephant" sitting on her chest that can occur both at rest and with exertion -DDx on arrival includes unstable angina, GERD, and anxiety (among other etiologies) -Was recently rx metoprolol for DVT on ziopatch -Patient is chest pain-free at time of admission Troponin 4.1 on arrival, repeat pending Magnesium ordered, pending Follows with [facility] cardiology (Dr. Lucas) Last normal nuclear stress was 08/2021 Cardiology evaluation appreciated for potential stress echo Continuous telemetry monitoring 09/28 NO FURTHER CP REPORTED Troponin negative x 2, third added and negative Mag stable 2.3, K 4.6. BUN elevation, place lisinopril on hold but already received NPO per Dr Henry and has orders for stress test this morning. Troponin 4.1 on repeat. Metoprolol INCREASED to 25mg PO daily for better HR control If stress testing negative, wanting to go home. ECHO w/ septal wm abnormal c/w underling LBBB. LV hyperdynamic. Grade I diastolic dysfunction. Aortic valve sclerosis mild without significant aortic valvular stenosis. Pulm artery systolic pressure 31mmHg (normal) If negative stress testing can likely dc unless otherwise indicated by cardiology on increased metoprolol to 25mg daily but rec f/u PCP about tx anxiety as suspect component w/ reported stress at home recently. (2) PARKINSON (dyspnea on exertion): Plan: No leukocytosis; afebrile. CXR without acute finding. No recent UTI sx ECHO as above, trop negative but stress testing pending (3) CAD (coronary artery disease): Plan: Aspirin 324 mg p.o. x 1 in the ED Continue aspirin, statin, metoprolol (4) HTN (hypertension): Plan: as above (5) Left bundle branch block: Plan: eval w/ stress testing (6) SVT (supraventricular tachycardia): Plan: h svt on zio patch outpt w/ cardiology and recently started on metoprolol 12.5mg and as above has been INCREASED 25mg daily - should continue at dc. further recs pending stress testing Plan DVT proph: Lovenox SQ Dispo: NPO for stress testing, possible dc on inc BB as outlined w/ PCP f/u for anxiety. TSH level checked earlier this year and wnl but could be considered in repeat f/u with cards/PCP Admission and Anticipated Discharge Date Admission Date: September 27, 2024 Subjective Evaluated this morning, resting in bed. Denies any CP/SOB at present, was sen by cardiology yesterday and discussed stress test for further evaluation. No abdominal pain/nausea. She does endorse some anxiety/stress at home as well but on celexa, increased 20mg last year. Discussed if stress testing negative if she would want to go home and she is helpful to leave today if testing negative. Questions/concerns addressed at this time. Physical Exam 2 Physical Exam: General: 84yo female resting in bed, NAD, denies CP, waiting for stress test HEENT: head atraumatic, normocephalic, mmm, trachea midline Resp: even/unlabored, no obvious w/c, on room air CV: RRR, HR 90s on telemetry, faint systolic murmur, no pitting edema GI: +BS, soft/NT MSK/Neuro: nonfocal, not confused, answering questions appropriately Psych: AOx3, cooperative with exam Results & Data Results & Data Vital Signs (Past 12 Hours) Vital Signs Temp Pulse Pulse Resp BP BP Pulse Ox 09/28/24 07:01 86 09/28/24 02:26 36.8 C 94 H 18 100/59 L 93 09/27/24 22:37 36.5 C 82 18 114/68 92 09/27/24 22:02 75 09/27/24 20:50 36 C L 75 18 109/62 97 09/27/24 20:50 36.4 C L 75 18 109/62 97 09/27/24 20:44 75 09/27/24 20:28 81 18 156/75 H 97 O2 Del Method 09/28/24 07:01 09/28/24 02:26 Room Air 09/27/24 22:37 Room Air 09/27/24 22:02 09/27/24 20:50 Room Air 09/27/24 20:50 Room Air 09/27/24 20:44 09/27/24 20:28 Room Air Laboratory Results 09/28/24 07:04 09/28/24 07:04 Troponin 4.1, 5.1, 4.1 Mag 2.3 Diagnostic Findings Chest X-Ray 09/27/24 12:39 XR chest 1V not portable CLINICAL HISTORY: Chest pain, nonspecific COMPARISON STUDY: Chest radiograph January 13, 2018. FINDINGS: Lung volumes are normal. Several small calcified pulmonary nodules are unchanged and benign. There is no pneumothorax or pleural effusion. Cardiac size is normal. Mediastinal contours are normal. There is no evidence for pulmonary edema. IMPRESSION: No acute cardiopulmonary findings. ACT 112: Negative or not required by law. Electronically signed by: Chaitanya Earl M.D. 09/27/2024 1:42 PM ECHOCARDIOGRAM ECHO w/ septal wm abnormal c/w underling LBBB. LV hyperdynamic. Grade I diastolic dysfunction. Aortic valve sclerosis mild iwthout significant aortic valvular stenosis. Pulm artery systolic pressure 31mmHg (normal) PG Care Time/CCT Total # of Minutes Spent Total Time Spent with Patient: Total time spent is greater than 50% in coordination of care (as documented) at patient's floor/unit and/or counseling patient: Coding Level of Care Code 57929 SUB INP/OBS CARE 2/35MIN Diagnoses Chest pain R07.9 PARKINSON (dyspnea on exertion) R06.09 CAD (coronary artery disease) I25.10 HTN (hypertension) I10 Left bundle branch block I44.7 SVT (supraventricular tachycardia) I47.10
[2024-09-28 07:52] VITALS: RESP 16
[2024-09-28 08:01] LABS: Basophils # (auto) 0.03 K/uL (0.00-0.20); Basophils % (auto) 0.6 %; Eosinophils # (auto) 0.14 K/uL (0.00-0.50); Eosinophils % (auto) 2.8 %; Hematocrit (blood only) 43.9 % (37.0-47.0); Hemoglobin 14.6 g/dl (12.0-16.0); Immature Granulocytes # (auto) 0.01 K/uL (0.01-0.20); Immature Granulocytes % (auto) 0.2 %; Lymphocytes # (auto) 1.77 K/uL (1.20-3.40); Lymphocytes % (auto) 34.8 %; Mean Corpuscular Hemoglobin 30.4 pg (25.0-34.0); Mean Corpuscular Hgb Conc 33.3 g/dL (32.0-36.0); Mean Corpuscular Volume 91.5 fL (80.0-100.0); Mean Platelet Volume 10.1 fL (9.4-12.4); Monocytes % (auto) 7.9 %; Neutrophils # (auto) 2.74 K/uL (1.40-6.50); Neutrophils % (auto) 53.7 %; Platelet Count 215 K/uL (130-400); RDW Coefficient of Variation 14.1 % (11.5-14.5); RDW Standard Deviation 47.4 fL (36.4-46.3); White Blood Count 5.09 K/ul (4.8-10.8)
[2024-09-28] MEDS: SENNA 8.6 MG TAB PO SCH (08:04)
[2024-09-28 08:40] LABS: BUN Creatinine Ratio 44.6 (10-20); Calcium 8.7 mg/dl (8.6-10.3); Creatinine Clr Calc Pharmacy 36.4 ml/min; Magnesium 2.3 mg/dl (1.7-2.4); Potassium 4.6 mmol/L (3.5-5.1); Troponin I High Sensitivity 4.1 pg/ml (0-14)
--- NOTE | 2024-09-28 08:41 | Cardiology Consultation ---
Date of Consultation September 28, 2024 Assessment & Plan (1) Chest pain: (2) PARKINSON (dyspnea on exertion): (3) Left bundle branch block: Plan Assessment: 84 year old female presents with several months of intermittent episodes of chest pain, becoming more frequent with no aggravating or alleviating factors. Plan: 1. Chest pain 2. PARKINSON 3. Left BBB -Patient with intermittent episodes of chest pain. last stress test dating back to 2020. -Known Left BBB, septal wall motion abnormality consistent with this. Maintains preserved LVEF. -given patient's history and current symptoms, will keep NPO and proceed with a nuclear Lexiscan stress test in the setting of a Left BBB -Echocardiogram with preserved LVEF and no significant valvular disease. -Review of telemetry does demonstrate elevated HR's. Received Toprol xl 12.5mg this AM. Will give an addition one time dose of Metoprolol tartrate prior to stress testing today. -Further recommendations pending stress testing. If negative, agree with primary team, that patient should see her PCP upon discharge to further investigate her anxiety and treatment options as this is likely a contributing factor. -Continue ASA 81mg daily, Lisinopril 5mg daily, Toprol xl 12.5mg daily, and Jaiden tor 5mg Daily. Case has been discussed with Dr. Henry. Further recommendations regarding plan of care as per his assessment. I spent a total of 40 minutes on the date of service in preparation, delivery, documentation of the care provided to the patient excluding any time spent in the performance of separately billed services. LISA [facility] Cardiology [facility] Supervising Physician Co-Signing Physician Notes Attending attestation: Case reviewed with the advanced practitioner. I have personally performed a history and physical examination on the patient. I have reviewed the advanced practitioner's documentation on the date of service referenced in note, and I agree with, and take responsibility for the plan of care. Subjective: Patient endorses on and off again chest pressure. She states that she walks a mile a day at the park near the [facility] and does not have symptoms with her walking routine and therefore some of the characteristic of her symptoms are suggestive angina or CHF and some are not. She has a longstanding history of left bundle branch block, left ventricular ejection fraction however remains normal and is actually hyperdynamic. Exam: Cardiovascular: Regular rhythm, no murmurs, no edema Pulmonary: Lungs clear to auscultation bilaterally Data: High sensitive troponin negative x 3 Impression/ Plan: Chest pressure, shortness of breath with exertion -Chest x-ray without suggestion of congestive heart failure heart rate was in the 90s during the echocardiogram despite her chronic dose of metoprolol succinate 12.5 mg daily. Would increase the metoprolol to 25 mg daily. Lexiscan nuclear stress test performed which patient tolerated well without rep roduction of any symptoms suggestive angina. Results of stress test are currently pending. Further recommendations be forthcoming after the stress test results are available. I spent a total of 20 minutes coordinating, documenting, and providing care for this patient excluding time spent in the performance of separately billed services or time spent by another provider. Toro Henry DO History of Present Illness Reason for Consultation: Chest pain Requesting Physician: LUIS Hospitalist Attending Physician: Abner Coello MD History of Present Illness HPI: Patient is a 84 year old female with PMHx as noted below that presented to the ER on 09/27/2024 with complaints of intermittent substernal chest pressure "several months", but that it has become more persistent over the past two weeks prompting her to present. . Described as a "elephant" sitting on her chest, can last several hours at a time with both rest and exertion. Reports associated sweats with episodes, but only one episode demonstrates radiation into the jaw. Reports some relief with Tylenol. Also endorses new dyspnea on exertion both with and without chest pain. Upon examination of patient today, she is ambulating around the room without acute concerns. States that she has been chest pain free overnight. Patient is typically active individual, walking daily and also goes to the [facility] for exercise. Patient does endorse that she has a lot of emotional stressors in her life at this time and "if its stress, I just don't know what I can do". last seen in our cardiology office by Benton Reyes PA-C Oct 2023. PMHx: 1. Hypertension 2. Hyperlipidemia 3. Left bundle-branch block 4. Remote coronary angiography in 2006 with minimal luminal coronary atherosclerosis after equivocal stress test, normal perfusion imaging 2009, normal nuclear stress 08/2021 5. Obesity status post gastric bypass surgery 6. Non alcoholic serohepatitis 7. Anemia 8. Anxiety 9. GERD 10. Restless leg syndrome EKG on admission shows NSR with left bundle branch block, rate 81bpm. Troponin negative x 3 BMP with Mag Pending Echocardiogram Pending NPO for Lexiscan stress test Chest x-ray negative for acute process Allergies Allergy/AdvReac Type Severity Reaction Status Date / Time No Known Drug Allergies Allergy . Verified 09/28/24 10:28 Home Medications Medication Instructions Recorded Confirmed Type docusate sodium 50 mg capsule 50 mg PO BID PRN Constipation 04/10/22 09/27/24 History acetaminophen 650 mg 1,300 mg PO Q8H PRN pain 05/24/22 09/27/24 History tablet,extended release multivitamin 1 tab PO BID 05/30/22 09/27/24 History sennosides 8.6 mg tablet (Natural 8.6 mg PO QAM 05/30/22 09/27/24 History Senna Laxative) aspirin 81 mg tablet,delayed 81 mg PO QPM 03/27/23 09/27/24 History release (Adult Low Dose Aspirin) magnesium oxide 500 mg capsule 500 mg PO BID 03/27/23 09/27/24 History rosuvastatin 5 mg tablet 5 mg PO HS 03/27/23 09/27/24 History cyanocobalamin (vitamin B-12) 1,000 mcg IM .Q monthly 04/29/23 09/27/24 History 1,000 mcg/mL injection solution vitamins A,C,P-pzpi-gwxigd 4,296 1 cap PO BID 11/17/23 09/27/24 History mcg-226 mg-90 mg capsule (PreserVision AREDS) omeprazole 20 mg capsule,delayed 20 mg PO QAM #90 caps 01/20/24 09/27/24 Rx release lisinopril 5 mg tablet 5 mg PO DAILY #90 tabs 02/16/24 09/27/24 Rx trazodone 100 mg tablet 200 mg (2 x 100 mg) PO HS #180 tabs 07/02/24 09/27/24 Rx cetirizine 10 mg tablet (Zyrtec) 10 mg PO DAILY PRN allergy 07/19/24 09/27/24 Rx symptoms #30 tabs ropinirole 0.25 mg tablet 0.5 mg (2 x 0.25 mg) PO HS #60 tabs 07/19/24 09/27/24 Rx citalopram 20 mg tablet (Celexa) 20 mg PO DAILY #90 tabs 09/16/24 09/27/24 Rx misoprostol 200 mcg tablet 200 mcg PO QID #120 tabs 09/16/24 09/27/24 Rx tizanidine 4 mg tablet 4 mg PO Q6H PRN muscle spasticity 09/16/24 09/27/24 Rx #360 tabs fluticasone propionate 50 2 spray intranasal DAILY PRN 09/27/24 09/27/24 History mcg/actuation nasal ALLERGIES spray,suspension (Flonase Allergy Relief) metoprolol succinate 25 mg 12.5 mg PO DAILY 09/27/24 09/27/24 History tablet,extended release 24 hr Patient History Medical History Anemia H&H WNL on preop labs 03/27/23 Arthritis Bladder leak GERD (gastroesophageal reflux disease) Anxiety Restless leg syndrome Hyperlipidemia Surgical History History of hysterectomy History of total knee replacement left History of esophagogastroduodenoscopy (EGD) History of colonoscopy History of cholecystectomy History of appendectomy H/O abdominal surgery 2021>hernia repair and bowel repair @ [place] by Dr. 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 Beliefs That Will Affect Care: None marital status: / Current Living Situation: Alone current occupational status: retired current occupation: retired- [employer] How many Children do You have: 4 Feels Safe at Home: Yes Safety Concerns: Feels Safe At This Time Childhood Exposure to Second-Hand Smoke: No caffeine: Yes (coffee) Dental Care, Regularly: No Physical Activity Frequency: Daily Seatbelt Use: always Sunscreen Use: Yes Assistive Devices: None Review of Systems Review of Systems: All systems reviewed & are unremarkable except as noted in HPI & below Physical Exam Constitutional: well developed and well nourished; no acute distress and not ill appearing Neck: normal visual inspection and trachea midline Respiratory: normal respiratory effort, lungs clear to auscultation Cardiovascular: Rate/Rhythm: regular rhythm and + tachycardic Heart Sounds: normal S1 and normal S2; no murmur Vessels: dorsalis pedis pulses present; no JVD Extremities: no edema Skin: no rashes, warm and dry Psychiatric: A+Ox3, euthymic affect Results & Data Vital Signs (Past 12 Hours) Vital Signs Temp Pulse Pulse Pulse Resp BP Pulse Ox 09/28/24 07:51 36.9 C 97 H 16 122/75 93 09/28/24 07:01 86 09/28/24 02:26 36.8 C 94 H 18 100/59 L 93 09/27/24 22:37 36.5 C 82 18 114/68 92 09/27/24 22:02 75 09/27/24 20:50 36 C L 75 18 109/62 97 09/27/24 20:50 36.4 C L 75 18 109/62 97 09/27/24 20:44 75 O2 Del Method 09/28/24 07:51 Room Air 09/28/24 07:01 09/28/24 02:26 Room Air 09/27/24 22:37 Room Air 09/27/24 22:02 09/27/24 20:50 Room Air 09/27/24 20:50 Room Air 09/27/24 20:44 Laboratory Results Cardiac Enzymes 09/27/24 09/27/24 09/27/24 Range/Units 12:43 15:37 18:22 AST Cancelled 36 Troponin I High Sens Cancelled 4.1 5.1 09/28/24 09/28/24 Range/Units 07:04 07:04 AST Troponin I High Sens 4.1 Cancelled Coagulation 09/27/24 09/27/24 Range/Units 12:43 15:37 PT Cancelled 10.4 APTT Cancelled 22 CBC 09/27/24 09/28/24 Range/Units 12:43 07:04 WBC 7.28 5.09 (4.8-10.8) K/ul RBC 5.20 4.80 (4.20-5.40) M/uL Hgb 16.6 H 14.6 (12.0-16.0) g/dl Hct 46.6 43.9 (37.0-47.0) % Plt Count 249 215 (130-400) K/uL Neut # (Auto) 4.38 2.74 (1.40-6.50) K/uL Lymph # (Auto) 2.29 1.77 (1.20-3.40) K/uL Carter # (Auto) 0.47 0.40 (0.11-0.59) K/uL Eos # (Auto) 0.11 0.14 (0.00-0.50) K/uL Baso # (Auto) 0.02 0.03 (0.00-0.20) K/uL Comprehensive Metabolic Panel 09/27/24 09/27/24 09/28/24 Range/Units 12:43 15:37 07:04 Sodium Cancelled 140 140 Potassium Cancelled 3.5 4.6 D Chloride Cancelled 103 106 Carbon Dioxide Cancelled 25 25 BUN Cancelled 31 H 45 H Creatinine Cancelled 0.94 1.01 Glucose Cancelled 93 96 Calcium Cancelled 10.0 8.7 AST Cancelled 36 ALT Cancelled 31 Alkaline Phosphatase Cancelled 78 Total Protein Cancelled 7.6 Albumin Cancelled 4.6 Intake and Output 09/27/24 09/28/24 09/28/24 22:59 06:59 14:59 Intake Total 550 / 550 Balance 550 / 550 Intake: Oral 550 / 550 Other: # Unmeasured Voids 1 Weight 62.227 kg 62.681 kg Weight Measurement Method Standing Scale Built in [facility] Diagnostic Findings Echocardiogram 09/28/2024 Mild concentric LVH septal wall motion is abnormal consistent with a underlying left BBB Remaining LV myocardial segments are normal to hypercontractile. LV hyperdynamic Left ventricular ejection fraction 65 to 70%. Grade I diastolic dysfunction Mild aortic valve sclerosis without stenosis PASP normal 31mmHg (1) Chest pain Chest pain type: unspecified Qualified Code(s): R07.9 - Chest pain, unspecified
[2024-09-28 12:12] VITALS: BP 109/69; TEMP 97.5; O2SAT 95
[2024-09-28] MEDS: REGADENOSON 0.4 MG/5 ML SYR IV ONE (12:27)
[2024-09-28] MEDS: METOPROLOL TARTRATE 25 MG TAB PO ONE (12:31)
--- NOTE | 2024-09-28 15:13 | Myocardial Perfusion Study ---
Date of Service September 28, 2024 Myocardial Perfusion Study [facility] Myocardial Perfusion Study Report Procedure: 1. Myocardial perfusion study performed in multiple views/images 2. Lexiscan pharmacologic stress ECG Indications: 1. chest pressure 2. dyspnea 3. chronic left bundle branch block Ordering physician: Toro Sherwood DO Procedural details: For the stress portion of the study, Lexiscan 0.4 mg was intravenously administered followed by a saline flush. This was followed by 29.7 mCi of technetium 99m Cardiolite, injected at 11:15 am on 09/28/24. 30 minutes following the injection, imaging of the heart was performed in multiple projections. For the rest portion of the study, 11.1 mCi technetium 99m Cardiolite was injected intravenously at 9:25 am on 09/28/24. 1 hour following the injection, imaging of the heart was performed in the same projections. The patient received 0.4 mg of IV regadenoson as part of pharmacologic stress protocol. The heart rate response to pharmacologic stress was normal. The blood pressure response to pharmacologic stress was normal. The baseline EKG revealed sinus rhythm with left bundle branch block in the 80s. The stress EKG response is nondiagnostic for excluding ischemia due to the presence of the underlying left bundle branch block. The resting blood pressure prior to the test was 120/71. The maximum blood pressure during the test was 131/57. The lowest blood pressure is 112/61. The test was terminated having reached the end of the predetermined protocol. Findings: Rotating raw imaging demonstrated no significant lung uptake. There is no significant motion artifact. Heart size appeared normal. No abnormalities were noted on the raw data.. Myocardial perfusion demonstrated normal stress and normal resting perfusion. Ejection fraction: 76 % (hyperdynamic) Wall motion: The septal motion was abnormal consistent with patient's history of left bundle branch block, otherwise no wall motion abnormalities No significant transient ischemic dilation. Impression: 1. The pharmacologic myocardial perfusion imaging study is normal without evidence of resting or inducible ischemia. 2. The stress EKG response is nondiagnostic for excluding ischemia due to the presence of the underlying left bundle branch block. 3. No symptoms suggestive angina were reproduced. Overall the stress test results are felt to be reassuring and suggestive of a low likelihood of underlying hemodynamically significant coronary heart disease.
--- NOTE | 2024-09-28 15:14 | Communication Note ---
Date of Service: September 28, 2024 Stress test results discussed with the patient, her daughter and her son-in-law. Stress test was normal. The test results are reassuring. Would recommend increasing home dose of metoprolol succinate from 12.5 mg 1 time per day to either 2.5 mg twice daily or 25 mg 1 time per day. Patient stable for discharge. No further cardiac testing felt to be indicated at this time.
--- NOTE | 2024-09-28 15:26 | Discharge Summary ---
Discharge Summary Date of Service September 28, 2024 Principal Dx & Hospital Course #1 = Principal Diagnosis (1) Chest pain: 84yo female presented to the ER 09/27 for worsening substernal CP x 2 weeks, described as "elephant" sitting on her chest but occurring independent of activity level. Recent rx for metoprolol 12.5mg PO daily for SVT noted on holter monitor. EKG w/ new LBBB not previously noted Troponin 4.1--> 5.1-> 4.1 Resting ECHO: ECHO septal wm abnormal c/w underling LBBB. LV hyperdynamic. Grade I diastolic dysfunction. Aortic valve sclerosis mild without significant aortic valvular stenosis. Pulm artery systolic pressure 31mmHg (normal) Cardiology consult, [facility] cardiology (last nuc stress 09/18) Mag wnl TSH prior this year normal but could consider repeating w/ underlying anxiety Telemetry monitoring with HR to 90s, cardiology suspected needing additional HR control, was provided 12.5mg PO tartrate x 1 prior to stress testing NO FURTHER CP reported Stress test negative for inducible ischemia but do note EKG stress response nondiagnostic for excluding ischemia due to presence of underling LBBB, but no sx suggestive of angina reported, overall felt reassuring of low likelihood of underlying hemodynamically significant CAD. Discussed with Dr Henry and dino w/ discharge, recs for metoprolol 12.5mg BID vs 25mg PO daily. Discussed with patient as already got 25mg today to take lower dose BID for 2-3 days and if not having any issues can switch to once daily. Also, notable did report anxiety, has been using sound sanket for anxiety but discussed with patient/family about rec for repeating thyroid function with PCP but was normal this year however if remains normal, highly rec either increasing her celexa as able, possible buspar prn for anxiety but also encouraged discussion/possible counseling as able to be arranged. Has appt with Dr Lucas on the , further management BB deferred to him Updated family at bedside, questions/concerns addressed. (2) PARKINSON (dyspnea on exertion): Improved with improvement in HR. Trop/EKG negative. CXR without acute finding, no recent URI sx. 95% on RA ECHO as above/stress testing reassuring. (3) CAD (coronary artery disease): Aspirin 324 mg p.o. x 1 in the ED and continued on ASA/statin, metoprolol increased as above. Troponins negative and stress testing performed /increased BB as above. (4) HTN (hypertension): as above, stable w/ increase but recs to continue BID dosing next 2-3 days and then can do the 25mg po daily metoprolol. outpt f/u PCP and cards (5) Left bundle branch block: eval w/ stress testing as above (6) SVT (supraventricular tachycardia): hx svt on zio patch outpt w/ cardiology and recently started on metoprolol 12.5m g Telemetry without arrhythmia but BB increased as above for better control. Plan DVT proph: Lovenox SQ while inpatient Discharged with family Notes For Next Care Provider Metoprolol inc to 25mg but recs 12.5mg BID for 2-3 days prior to switching to once daily dosing. Dr Luacs appt 6th per family. Rec f/u discussion about adj to celexa (but does appear 20mg max for age >60 per UTD) however did mention possible trial buspar for anxiety but additional apps for anxiety Consider repeat TFT given anxiety to ensure staying wnl. No other sx/pretibial edema/constipation reported but could be considered Medication Changes From Visit Metoprolol increased to 25mg daily total Admission HPI Per Admitting Provider Tiffany is an 84-year-old female with PMH of MUELLER, mood disorder, stress/urge incontinence, gastric bypass, HTN, HLD, and CAD. She presented on 09/27 for substernal chest pain x 2 weeks. She reports it feels like a "elephant" sitting on her chest, and can last intermittently for hours at a time. It can occur both at rest and with exertion, and she reports that she occasionally breaks out into sweats. Today, it occurred after she had walked 2 miles outside. The pain can last for hours at a time. She is unsure if there is any alleviating symptoms, but reports that it does sometimes alleviate with rest or when she goes to bed. This has become a daily occurrence for her. She describes it as a dull, achy pain that is 10/10 at worst. One episode of radiation up to the jaw. No radiation to her shoulders or down the arms. No radiation between her shoulder blades. She has been taking Tylenol at home for the pain, which she does report helps. No recent falls, injuries to the chest wall, or muscle strains to her knowledge. She is chest pain-free after receiving medicine in the ED. She does not believe she has had any rashes or tick bites on her abdomen or torso. Patient took her regular morning medicine today; no recent c hange in medicines. She manages her own medicine at home. Additional symptoms include new onset PARKINSON. She follows with Dr. Lucas cardiology outpatient. She does not use supplemental oxygen at baseline or a CPAP at night. Patient denies smoking, tobacco use, recent alcohol use. Patient is mildly hypertensive at 156/84 time of admission; vitals otherwise stable. ED course: Aspirin 324 mg p.o. Lorazepam 0.25 mg IV ROS: Patient endorses intermittent chest pain (like an "elephant" sitting on her chest), GOMEZ, intermittent lightheadedness, pleuritic CP, and new onset PARKINSON. Patient denies fever, chills, night-sweats, pain between the shoulder blades, SOB at rest, chest palpitations, cough, hemoptysis, abdominal pain, N/V/D, changes in urinary/bowel habits, blood in the urine/stool, or numbnes s/tingling/pain in the arms. Admission Exam Per Admitting Provider General: no acute distress; pleasant affect; non-toxic appearing; frail appearing; cooperative; SpO2 99% on RA HEENT: normocephalic, atraumatic; no scleral icterus; PERRLA; vision and hearing intact Neck: supple; no lymphadenopathy; trachea midline Skin: warm, dry without signs of tenting; no cyanosis; no rashes, bruising, lesions, or erythema noted CV: chest wall is mildly TTP substernally; no rashes or bruising noted on the chest wall, abdomen, flanks; RRR; S1/S2 normal; no murmurs/rubs/gallops; pulses intact and symmetric at radial, DP, and PT Lungs: no acute respiratory distress; symmetrical chest wall expansion; clear breath sounds across all lung ramos w/o adventitious sounds; no wheezing ABD: Soft, NTP; BS present; no rebound/guarding; no distention MSK: no tics or fasciculations; no edema noted in the LEs b/l, nonerythematous; 5/5 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 bilaterally Neuro: A&Ox3; normal mood and affect; fluent speech; no focal deficits; sensation is intact and symmetric in lower extremities bilaterally Discharge Exam General: 84yo female resting in bed, NAD, denies CP, ready for discharge, family at bedside HEENT: head atraumatic, normocephalic, mmm, trachea midline Resp: even/unlabored, no obvious w/c, on room air CV: RRR,rates 60-70s, faint systolic murmur, no pitting edema GI: +BS, soft/NT MSK/Neuro: nonfocal, not confused, answering questions appropriately Psych: AOx3, cooperative with exam Discharge Plan Discharge Items Patient Disposition: Home - Self-Care Reason For Visit: CHEST PAIN Discharge Diagnosis: Chest pain, rule out acute coronary artery disease Goals: You have been hospitalized for an acute medical problem. During your stay at [facility], we have made an effort to correct the problem that brought you to the hospital while keeping you as comfortable as possible. Medications were used to bring your condition under control and your discharge instructions will include directions for any medications you should take after leaving the hospital. Please make sure you see your Primary Care Provider as part of your follow up plan. Activity: As commented below Non-emergency contact: Primary Care Provider and Hand Ornament Maker Call non-emergency contact if: you have any medication questions, your pain is not controlled and you have a fever Follow-up/Referrals: Emiliano Lucas MD [Physician] - Erwin Art DO [Primary Care Provider] - 10/05/24 3:00 pm Diet: Heart Healthy Addtl Attending Provider Instructions: You have been hospitalized for chest pain. Cardiac enzymes were drawn and NEGATIVE, indicating no damage to the heart. You had an ultrasound of the heart which appears stable however they noted a new "left bundle branch block" and cardiology has ordered a stress test which was NEGATIVE. Per Dr Henry, you should INCREASE the metoprolol to 25mg once daily. As discussed, you can take your current metoprolol TWICE daily for the next 2-3 days to make sure not causing any issues and if feeling well can start the increased ONCE daily to 25mg as sent to your pharmacy. As discussed, could have element of anxiety and would recommend discussing adjusting your celexa in follow up as well as possible buspar to use as needed but would defer to primary care in follow up. Consideration to talk with someone/counseling may not be a bad idea either. As discussed, would also mention repeating thyroid function testing to ensure not needing replacement that would indicate a cause for increased anxiety/elevated heart rates however was normal earlier this year. Please follow up with primary care as well as cardiology at discharge to monitor your progress after discharge. Please return to the ER with any repeat symptoms, fever, or for any other symptoms concerning for you. It has been a pleasure being a part of the medical team providing for you while you have been in the hospital. Take care. Pending Studies at Discharge: No Stand-Alone Forms: [facility], Smoking Cessation Medications and DC Order Prescriptions: New metoprolol succinate 25 mg Tablet Extended Release 24 Hr 25 mg PO QAM Qty: 30 0RF Continued omeprazole 20 mg capsule,delayed release(DR/EC) 20 mg PO QAM Qty: 90 3RF trazodone 100 mg tablet 200 mg PO HS Qty: 180 0RF cetirizine [Zyrtec] 10 mg tablet 10 mg PO DAILY PRN (Reason: allergy symptoms) Qty: 30 5RF ropinirole 0.25 mg tablet 0.5 mg PO HS Qty: 60 2RF tizanidine 4 mg tablet 4 mg PO Q6H PRN (Reason: muscle spasticity) Qty: 360 0RF misoprostol 200 mcg tablet 200 mcg PO QID Qty: 120 0RF Rx Instructions: Take by mouth 1 tablet in the morning AND 1 tablet at noon AND 1 tablet in the evening AND 1 tablet before bedtime citalopram [Celexa] 20 mg tablet 20 mg PO DAILY Qty: 90 0RF docusate sodium 50 mg capsule 50 mg PO BID PRN (Reason: Constipation) multivitamin Tablet 1 tab PO BID Patient Comments: with calcium "bariatric surgery vitamin" Rx Instructions: [place] vitamin sennosides [Natural Senna Laxative] 8.6 mg tablet 8.6 mg PO QAM cyanocobalamin (vitamin B-12) 1,000 mcg/mL solution 1,000 mcg IM .Q monthly acetaminophen 650 mg tablet extended release 1,300 mg PO Q8H PRN (Reason: pain) PreserVision AREDS 4,296 mcg-226 mg-90 mg capsule 1 cap PO BID lisinopril 5 mg tablet 5 mg PO DAILY Qty: 90 3RF aspirin [Adult Low Dose Aspirin] 81 mg tablet,delayed release (DR/EC) 81 mg PO QPM rosuvastatin 5 mg tablet 5 mg PO HS magnesium oxide 500 mg capsule 500 mg PO BID fluticasone propionate [Flonase Allergy Relief] 50 mcg/actuation spray,suspension 2 spray intranasal DAILY PRN (Reason: ALLERGIES) Rx Instructions: administer into each nostril Discontinued metoprolol succinate 25 mg tablet extended release 24 hr 12.5 mg PO DAILY Discharge Orders: Discharge Order (Routine); Ordered 09/28/24 Ordered By: Rae Dotson Admission Data Admit Date/Time: 09/27/24 17:26 Attending Provider: Abner Coello Admit Provider: Monty Hernandes Primary Care Provider: Erwin Art Other Providers: Monty Hernandes; Toro Henry Hospital Stay Data Consultations 09/27/24 16:43 ED Decision to Admit Stat 09/27/24 18:17 Consult Cardiology Routine Diagnostic Imagining Performed Chest X-Ray 09/27/24 12:39 XR chest 1V not portable CLINICAL HISTORY: Chest pain, nonspecific COMPARISON STUDY: Chest radiograph January 13, 2018. FINDINGS: Lung volumes are normal. Several small calcified pulmonary nodules are unchanged and benign. There is no pneumothorax or pleural effusion. Cardiac size is normal. Mediastinal contours are normal. There is no evidence for pulmonary edema. IMPRESSION: No acute cardiopulmonary findings. ACT 112: Negative or not required by law. Electronically signed by: Chaitanya Earl M.D. 09/27/2024 1:42 PM ECHOCARDIOGRAM 09/28/2024 ECHO w/ septal wm abnormal c/w underling LBBB. LV hyperdynamic. Grade I diastolic dysfunction. Aortic valve sclerosis mild without significant aortic valvular stenosis. Pulm artery systolic pressure 31mmHg (normal) Stress ECHOCARDIOGRAM 09/28/2024 Findings: Rotating raw imaging demonstrated no significant lung uptake. There is no significant motion artifact. Heart size appeared normal. No abnormalities were noted on the raw data.. Myocardial perfusion demonstrated normal stress and normal resting perfusion. Ejection fraction: 76 % (hyperdynamic) Wall motion: The septal motion was abnormal consistent with patient's history of left bundle branch block, otherwise no wall motion abnormalities No significant transient ischemic dilation. Impression: 1. The pharmacologic myocardial perfusion imaging study is normal without evidence of resting or inducible ischemia. 2. The stress EKG response is nondiagnostic for excluding ischemia due to the presence of the underlying left bundle branch block. 3. No symptoms suggestive angina were reproduced. Overall the stress test results are felt to be reassuring and suggestive of a low likelihood of underlying hemodynamically significant coronary heart disease. Discharge Instructions Given to Patient (Per Discharging Provider) You have been hospitalized for chest pain. Cardiac enzymes were drawn and NEGATIVE, indicating no damage to the heart. You had an ultrasound of the heart which appears stable however they noted a new "left bundle branch block" and cardiology has ordered a stress test which was NEGATIVE. Per Dr Henry, you should INCREASE the metoprolol to 25mg once daily. As discussed, you can take your current metoprolol TWICE daily for the next 2-3 days to make sure not causing any issues and if feeling well can start the increased ONCE daily to 25mg as sent to your pharmacy. As discussed, could have element of anxiety and would recommend discussing adjusting your celexa in follow up as well as possible buspar to use as needed but would defer to primary care in follow up. Consideration to talk with someone/counseling may not be a bad idea either. As discussed, would also mention repeating thyroid function testing to ensure not needing replacement that would indicate a cause for increased anxiety/elevated heart rates however was normal earlier this year. Please follow up with primary care as well as cardiology at discharge to monitor your progress after discharge. Please return to the ER with any repeat symptoms, fever, or for any other symptoms concerning for you. It has been a pleasure being a part of the medical team providing for you while you have been in the hospital. Take care. Total Time Total Time Spent Total Time Spent (In Minutes): 40 Coding Level of Care Code 87754 INP/OBS DISCH >30 MIN Diagnoses Chest pain R07.9 PARKINSON (dyspnea on exertion) R06.09 CAD (coronary artery disease) I25.10 HTN (hypertension) I10 Left bundle branch block I44.7 SVT (supraventricular tachycardia) I47.10
[2024-09-28 15:50] VITALS: PULSE 94
[2024-09-28] MEDS ORDERED: ASPIRIN 81 MG ECTAB PO SCH (21:00)
[2024-09-29] MEDS ORDERED: METOPROLOL SUCC 25MG EXT REL TAB PO SCH (09:00)
== END 2024-09-28 16:01 | disposition home or self-care (01) ==
LOC: ED 12:33 → EDINP 12:33 → SUATTDRO 17:26 → 2N 18:18